=== PATIENT | female | born 1960 | race Caucasian/White ===

== ENCOUNTER → 2020-03-05 16:40 | Outpatient (CLI) | payer OTHER, SELFPAY ==
--- NOTE | ~2020-03-05 | XR_ITS ---
EXAMINATION: XR hand RT min 3V, XR wrist RT w scaphoid EXAM DATE: 03/05/2020 17:12 INDICATION: No known recent injury provided at this time. Pain of the right wrist. TECHNIQUE: Right hand frontal, lateral and oblique projections obtained and reviewed. Right wrist fro ntal, frontal with ulnar deviation, oblique and lateral projections obtained and reviewed. Additiona l scaphoid projection. There are no prior studies for comparison. FINDINGS: Right metacarpal bones are unremarkable. Right wrist scapholunate joint space is maintain ed. No evidence of carpal avascular necrosis. There are no bony erosions identified. There are no ac mashpee fractures or dislocations identified. There is no subcutaneous gas. The soft tissue is unremark able. There are no radiopaque foreign bodies. IMPRESSION: Unremarkable right hand, wrist exam. Reviewed, dictated and finalized at location A. IMPRESSION: Unremarkable right hand, wrist exam.
== END ==
PROVIDERS: PCP Family Medicine; Visit Provider Family Medicine
DX: M25.531 Pain in right wrist (principal); G56.01 Carpal tunnel syndrome, right upper limb
CPT/HCPCS: 73110; 73130

== ENCOUNTER 2020-04-14 01:49 | Outpatient (CLI) | payer OTHER, SELFPAY ==
[2020-04-14 18:09] LABS: SARS-CoV-2 RNA PCR Negative
== END 2020-04-14 01:50 | disposition home or self-care (01) ==
LOC: ANHCOVIDDT 01:50
PROVIDERS: PCP Family Medicine; Visit Provider Internal Medicine Gastroenterology
DX: Z01.812 Encounter for preprocedural laboratory examination (principal); Z11.59 Encounter for screening for other viral diseases
CPT/HCPCS: 87635; C9803; U0003

== ENCOUNTER 2020-04-17 02:32 | Day surgery (SDC) | payer OTHER, SELFPAY ==
[2020-04-11 13:21] VITALS: BMI 23.8
[2020-04-17 07:57] VITALS: BMI 22.6
[2020-04-17] MEDS: LACTATED RINGERS 1,000 ML 150 ML IV CONT (08:10)
--- NOTE | 2020-04-17 08:50 | WPDANESEPPF ---
Anes - Initial Pre Proc Eval Procedure: Operation Date: 04/17/20 09:15 Proposed Procedures p Screening Colonoscopy - Bennett Valle MD Date/Time: 04/17/20 08:50 Surgeon: Bennett Valle MD Pre Op Diagnosis: Neoplasm Screening Patient Data Age: 59 Gender: F Height: 5 ft 2 in Weight: 56.1 kg Allergies Allergy/AdvReac Type Severity Reaction Status Date / Time oxycodone Allergy Unknown Vomiting Verified 04/17/20 07:56 Home Medications Medication Instructions Recorded Confirmed Type peg 3350-electrolytes 236 240 ml PO Q10M #4000 ml 04/10/20 Rx gram-22.74 gram-6.74 gram-5.86 gram solution Patient hx anesthesia problems: none Family hx anesthesia problems: none PMFSH Family History Family History Father Family history of polycystic kidney disease Family history of malignant neoplasm Mother Family history of chronic obstructive pulmonary disease Sibling Family history of elevated blood lipids Family history of emphysema Social History Social History Smoking status: Never smoker Alcohol intake: never Gender identity (if verbalized by the patient): Female Sexual Orientation (if Verbalized by the Patient): Straight or Heterosexual Anes - Eval Final PreProcedure Day of Procedure 04/17/20 08:50 Patient weight: normal Heart: regular rate and rhythm Lungs: clear to auscultation Airway: Mallampati scale class 1 Neurological: alert and oriented Last oral intake: >/= 8 hours ASA classification: I Emergent: no Anesthetic plan: proceed Anesthesia type and monitoring: general GIVS and standard monitoring Informed Consent: The patient's anesthetic plan and its attendant risks and benefits were discussed with the patient/family/POA. Questions were solicited and answers provided to the satisfaction of the patient/family/POA.
--- NOTE | 2020-04-17 09:37 | PM.HPGS ---
History of Present Illness History of Present Illness Consent: Risks, benefits, and alternatives have been discussed and questions answered. Patient agrees to proceed with procedure. Chief complaint: Neoplasm Screening Narrative: Tosha Thibodeaux is a 59 year old female with colon polyps 5 years ago Review of Systems Constitutional: Constitutional: Denies headache(s) and Denies weakness Eyes: Eyes: Denies blurry vision ENT: Reports Normal hearing present, Denies headache(s) and Denies neck pain Cardiovascular: Cardiovascular: Denies chest pain and Denies dyspnea Respiratory: Respiratory: Denies dyspnea Gastrointestinal: Gastrointestinal: Reports no additional gastrointestinal complaints Genitourinary: Genitourinary: Denies dysuria Musculoskeletal: Musculoskeletal: Denies neck pain Integumentary/Breasts: Skin/Breast: Denies dry skin Neurologic: Reports Normal hearing present, Denies headache(s) and Denies weakness Psychiatric: Psychiatric: Denies anxiety Endocrine: Endocrine: Denies change in body appearance Hematologic/Lymphatic: Hematologic/Lymphatic: Denies easy bleeding Allergic/Immunologic: Allergic/Immunologic: Denies urticaria PMF Family History Family History Father Family history of polycystic kidney disease Family history of malignant neoplasm Mother Family history of chronic obstructive pulmonary disease Sibling Family history of elevated blood lipids Family history of emphysema Social History Social History Smoking status: Never smoker Alcohol intake: never Gender identity (if verbalized by the patient): Female Sexual Orientation (if Verbalized by the Patient): Straight or Heterosexual Meds Home Medications and Allergies Home Medications Medication Instructions Recorded Confirmed Type peg 3350-electrolytes 236 240 ml PO Q10M #4000 ml 04/10/20 Rx gram-22.74 gram-6.74 gram-5.86 gram solution Allergies Allergy/AdvReac Type Severity Reaction Status Date / Time oxycodone Allergy Unknown Vomiting Verified 04/17/20 07:56 Exam Const: General: comfortable and no acute distress HENMT: General nose exam: Normal nares present Eyes: General: appearance normal, both eyes and all related structures Neck: Neck: no JVD Resp: Auscultation: clear to auscultation bilaterally Cardio: Rate: regular rate Rhythm: regular rhythm GI: Inspection: non-distended GI Palp: Yes Soft to palpation Skin: General skin exam: normal color Neuro: General: gait normal Speech: normal speech Extrem: General: normal to inspection Psych: Mental Status: mental status grossly normal Assessment and Plan Assessment and plan (1) Adenomatous colon polyp: Code(s): D12.6 - Benign neoplasm of colon, unspecified Status: Acute Assessment and Plan: proceed with colonoscopy
[2020-04-17 10:00] VITALS: BP 95/61; PULSE 79; RESP 17; O2SAT 97
[2020-04-17 10:10] VITALS: BP 100/64; PULSE 79; RESP 17; O2SAT 97
[2020-04-17 10:20] VITALS: BP 114/82; PULSE 71; RESP 17; O2SAT 97
== END 2020-04-17 10:40 | disposition home or self-care (01) ==
PROVIDERS: PCP Family Medicine; Visit Provider Internal Medicine Gastroenterology
PROC: 0DJD8ZZ Inspection of Lower Intestinal Tract, Via Natural or Artificial Opening Endoscopic (ICD-10-PCS; CPT 45378; principal; 2020-04-17 09:15)
DX: Z12.11 Encounter for screening for malignant neoplasm of colon (principal); K57.30 Diverticulosis of large intestine without perforation or abscess without bleeding; Z86.010 Personal history of colon polyps
CPT/HCPCS: 45378; 87635; J2704; J7120; U0003

== ENCOUNTER 2020-05-14 01:35 | Outpatient (CLI) | payer OTHER, SELFPAY ==
[2020-05-14 18:20] LABS: SARS-CoV-2 RNA PCR Negative
== END 2020-05-14 01:36 | disposition home or self-care (01) ==
LOC: ANHCOVIDDT 01:35
PROVIDERS: PCP Family Medicine; Visit Provider Plastic Surgery
DX: Z01.812 Encounter for preprocedural laboratory examination (principal); Z11.59 Encounter for screening for other viral diseases
CPT/HCPCS: 87635; C9803; U0003

== ENCOUNTER 2020-05-16 01:11 | Day surgery (SDC) | payer OTHER, SELFPAY ==
[2020-04-30 14:32] VITALS: BMI 23.8
--- NOTE | 2020-05-15 16:49 | HP_ITS ---
DATE OF SERVICE: 05/16/2020 PREOPERATIVE DIAGNOSIS: Bilateral carpal tunnel syndrome. HISTORY: The patient is a 60-year-old. Patient of Dr. Ambrose. She presented with a nerve conduction test, which was done at [facility], 04/02/2020, both found the diagnosis of right and left carpal tunnel syndrome. She is right-hand dominant lady, complaints of more on the left. She has tingling in the radial 4 digits. She has some radiation up the forearm. The symptoms are off and on. Says, the 5th digit does not get numb. Her symptoms interfere with activities of daily living such as sleeping and preparing food. We discussed carpal tunnel surgery. She would like to do both at the same time. She prefer this under MAC anesthetic. She is aware of the placement of the incision, possibility of infection, wound dehiscence, nerve or tendon injury, anesthetic complications, and others. She would like to proceed. MEDICATIONS: She does not take any medications. ALLERGIES: SHE HAS AN ALLERGY TO OXYCODONE. SHE SAYS IT MAKES HER THROW UP. PAST SURGICAL HISTORY: She does not list any other surgeries. She does not see any other specialist. She is a nonsmoker. REVIEW OF SYSTEMS: Otherwise negative. FAMILY HISTORY: Noncontributory. SOCIAL HISTORY: She lives in [place]. She works for [employer]. She is to [place]. PHYSICAL EXAMINATION: GENERAL: She is 125 pounds weight. She is 5 foot 2. She is in no distress. HEENT: Unremarkable. CHEST: Clear to auscultation. HEART: Regular rate and rhythm by palpation. ABDOMEN: Soft, nontender. EXTREMITIES: Reveals that she uses all 4. Regarding hands specifically, she has provocative pain in the forearm. A Tinel's at the wrists on both sides. Some tenderness in the left thenar mass. Wrist compression test was positive and ulnar digits on the left hand. ASSESSMENT: Bilateral carpal tunnel syndrome. PLAN: Bilateral open carpal tunnel release under MAC anesthetic. D I MT: Jayden CANTOR
[2020-05-16] VITALS (7 sets, daily range): BP systolic 78–135; BP diastolic 42–86; PULSE 57–83; RESP 12–20; TEMP 36.8; O2SAT 96–99
[2020-05-16] MEDS: LACTATED RINGERS 1,000 ML 30 ML IV CONT (06:41)
--- NOTE | 2020-05-16 07:07 | WPDANESEPPF ---
Anes - Initial Pre Proc Eval Procedure: Operation Date: 05/16/20 07:30 Proposed Procedures p Bilateral Open Carpal Tunnel Release - Jairon Gates MD Date/Time: 05/16/20 07:07 Surgeon: Jairon Gates MD Pre Op Diagnosis: Bilateral Carpal Tunnel Syndrome Patient Data Age: 60 Gender: F Height: 5 ft 2 in Weight: 56.3 kg Last Vital Signs Temp 36.8 C 05/16/20 06:44 Pulse 82 05/16/20 06:44 BP 135/86 05/16/20 06:44 Pulse Ox 99 05/16/20 06:44 Allergies Allergy/AdvReac Type Severity Reaction Status Date / Time oxycodone Allergy Intermediate Vomiting Verified 04/30/20 14:19 Home Medications Medication Instructions Recorded Confirmed Type No Home Medications 04/30/20 04/30/20 History Patient hx anesthesia problems: none Family hx anesthesia problems: none PMFSH Past Medical History Medical History Adenomatous colon polyp Family History Family History Father Family history of polycystic kidney disease Family history of malignant neoplasm Mother Family history of chronic obstructive pulmonary disease Sibling Family history of elevated blood lipids Family history of emphysema Social History Social History Smoking status: Never smoker Alcohol intake: never Substance use: never Living arrangements: with family Gender identity (if verbalized by the patient): Female Spiritual care concerns: No Anes - Eval Final PreProcedure Day of Procedure 05/16/20 07:07 Patient weight: normal Heart: regular rate and rhythm Lungs: clear to auscultation Airway: Mallampati scale class II Neurological: alert and oriented Last oral intake: >/= 8 hours ASA classification: I Emergent: no Anesthetic plan: proceed Anesthesia type and monitoring: general GIVS and standard monitoring Informed Consent: The patient's anesthetic plan and its attendant risks and benefits were discussed with the patient/family/POA. Questions were solicited and answers provided to the satisfaction of the patient/family/POA.
--- NOTE | 2020-05-16 07:12 | WPDHPUPDATE1 ---
History and Physical Update Update Date/Time: 05/16/20 07:12 History and Physical has been reviewed, including an updated exam of the patient. There are NO changes in the patient's condition. Risks, benefits, and alternatives have been discussed and questions answered. Patient agrees to proceed with procedure.
[2020-05-16] MEDS: LIDO 1%/EPINEPHRINE 1:100,000 20 ML VIAL 10 ML INFILTRATE (07:26)
--- NOTE | 2020-05-16 07:26 | PM.OP ---
Procedure Note - Brief Procedure Note - Brief Date of procedure: 05/16/20 Pre-op diagnosis: Bilateral Carpal Tunnel Syndrome Post-op diagnosis: same Procedure performed: B OCTR Anesthesia: MAC Surgeon: Jairon Gates MD Estimated blood loss (mL): 2 Drains: No Packing: No Pathology: none sent Complications: No immediate complications Disposition: same day
--- NOTE | 2020-05-16 08:19 | PM.PROC ---
Procedure Note - Detailed Date of procedure: 05/16/20 Pre-op diagnosis: Bilateral Carpal Tunnel Syndrome Post-op diagnosis: same Procedure performed: Bilateral open carpal tunnel release Description of procedure: the patient is to palm were marked as she waited in the holding area. She was taken to the operating room and placed supine on the operating table. A time-out was held and confirmed. The extremities were prepped and draped in usual fashion. We began on the right side with infiltration 1% lidocaine with epinephrine at the surgical site. The tourniquet was inflated to 250 mmHg. The incision was made in the palm as marked. Dissection was carried bluntly through the subcutaneous tissue to the palmar fascia. This and the carpal ligament were incised with a 15 blade. Under 3 point retraction the ligament was visualized and divided distally and proximally for complete release. No unusual anatomy was noted. The skin was closed with interrupted 5 0 nylon suture and a small bandage was applied with Shashi wrap and the tourniquet was released. Attention was turned to the left side where the operative site was again locally infiltrated with 1% lidocaine with epinephrine. The tourniquet was inflated to 250 mmHg. The hand was supported on folded towels due to the placement of the tourniquet on the forearm. The incision was made as marked and dissection was carried bluntly through the subcutaneous tissue to the palmar fascia. This and the carpal ligament were incised with a 15. Blade opening the canal. Under 3 point retraction the ligament was divided distally and proximally for complete release. The skin was closed with interrupted 5 0 nylon suture. The usual bandage was applied. She is discharged with instructions in wound care and follow-up a prescription for hydrocodone was entered. The tourniquet time on each side was 6 minutes Surgeon: Jairon Gates MD
--- NOTE | 2020-05-16 09:09 | SUR.OPER ---
EBL:[id number]
== END 2020-05-16 10:05 | disposition home or self-care (01) ==
PROVIDERS: PCP Family Medicine; Visit Provider Plastic Surgery
PROC: (CPT 64721; principal; 2020-05-16 07:30)
DX: G56.03 Carpal tunnel syndrome, bilateral upper limbs (principal)
CPT/HCPCS: 64721; A9270; J2250; J2704; J3010; J7120